=== PATIENT | female | born 1980 | race Caucasian/White ===

== ENCOUNTER 2016-11-21 19:57 | Emergency (ER) | payer OTHER ==
[~2016-11-21 19:57] MED LIST: ACETAMINOPHEN325 MG PO; ALBUTEROL2.5 MG/3 M NEB; EPIPEN 2-P0.3 MG/0.3 INJ; LEVAQUIN750 MG PO; MEDROL4 M1 PO; NORCO 5-325 TA1 EACH PO; TESSALON PERLE100 MG PO; VENTOLIN HFA8 GM IH; ZOFRAN4 MG PO
== END 2016-11-21 21:30 | disposition home or self-care (01) ==
LOC: ER 19:57
DX: N13.2 Hydronephrosis with renal and ureteral calculous obstruction (principal); E66.9 Obesity, unspecified; I10 Essential (primary) hypertension; Z90.710 Acquired absence of both cervix and uterus; Z90.49 Acquired absence of other specified parts of digestive tract; Z88.8 Allergy status to other drugs, medicaments and biological substances
CPT/HCPCS: 36415; 96361; 96374; 96375; J1885